=== PATIENT | male | born 1990 | race Caucasian/White ===

== ENCOUNTER 2017-05-27 17:43 | Emergency (ER) | payer SELFPAY ==
[2017-05-27 17:44] VITALS: BMI 27.8
[2017-05-27 18:17] VITALS: TEMP 102.6
[2017-05-27] MEDS ORDERED: Sodium Chloride 0.9% 1,000 ML IV STA (18:30)
--- NOTE | 2017-05-27 18:30 | ED PDOC ---
Arrival/HPI - General Chief Complaint: Flu-like Symptoms Time Seen by Provider: 05/27/17 18:13 Historian: Patient - History of Present Illness Narrative History of Present Illness (Text): 05/27/17 18:24 26yo male with no Past medical history who present with complaint of fever , body ache and mild cough x 2days. Notes that he took Motrin last night with some relieve. He denies sore throat, abdominal pain, nausea, vomiting, diarrhea , urinary symptoms, any other complaint. Past Medical History - Provider Review Nursing Documentation Reviewed: Yes - Infectious Disease Hx of Infectious Diseases: None - Tetanus Immunization Tetanus Immunization: Unknown - Past Medical History Past Medical History: No Previous - Cardiac Hx Cardiac Disorders: No - Pulmonary Hx Respiratory Disorders: No - Neurological Hx Neurological Disorder: No - HEENT Hx HEENT Disorder: No - Renal Hx Renal Disorder: No - Endocrine/Metabolic Hx Endocrine Disorders: No - Hematological/Oncological Hx Blood Disorders: No - Integumentary Hx Dermatological Disorder: No - Musculoskeletal/Rheumatological Hx Musculoskeletal Disorders: No - Gastrointestinal Hx Gastrointestinal Disorders: No - Genitourinary/Gynecological Hx Genitourinary Disorders: No - Psychiatric Hx Psychophysiologic Disorder: No Hx Substance Use: No - Surgical History Hx Orthopedic Surgery: Yes (L KNEE) - Suicidal Assessment Feels Threatened In Home Enviroment: No Family/Social History - Physician Review Nursing Documentation Reviewed: Yes Family/Social History: Unknown Family HX Smoking Status: Never Smoked Hx Alcohol Use: Yes Frequency of alcohol use: Socially Hx Substance Use: No Hx Substance Use Treatment: No Allergies/Home Meds Allergies/Adverse Reactions: Allergies No Known Allergies Allergy (Verified 05/27/17 17:48) Review of Systems - Physician Review All systems were reviewed & negative as marked: Yes - Review of Systems Constitutional: Fevers Eyes: Normal ENT: Normal Respiratory: Cough. absent: SOB, Sputum, Wheezing Cardiovascular: Normal Gastrointestinal: Normal Genitourinary Male: Normal Musculoskeletal: Myalgias Skin: Normal Neurological: Normal Endocrine: Normal Hemo/Lymphatic: Normal Psychiatric: Normal Physical Exam Vital Signs Reviewed: Yes Vital Signs Temp Pulse Resp BP Pulse Ox 05/27/17 17:50 102.6 F H 144 H 17 132/79 98 Temperature: Febrile Blood Pressure: Normal Pulse: Tachycardic Respiratory Rate: Normal Appearance: Positive for: Well-Appearing, Non-Toxic, Comfortable Pain Distress: None Mental Status: Positive for: Alert and Oriented X 3 - Systems Exam Head: Present: Atraumatic, Normocephalic Pupils: Present: PERRL Extroacular Muscles: Present: EOMI Conjunctiva: Present: Normal Mouth: Present: Moist Mucous Membranes Neck: Present: Normal Range of Motion Respiratory/Chest: Present: Clear to Auscultation, Good Air Exchange. No: Respiratory Distress, Accessory Muscle Use, Wheezes, Decreased Breath Sounds, Rales, Retracting, Rhonchi Cardiovascular: Present: Regular Rate and Rhythm, Normal S1, S2. No: Murmurs Abdomen: Present: Normal Bowel Sounds. No: Tenderness, Distention, Peritoneal Signs Back: Present: Normal Inspection Upper Extremity: Present: Normal Inspection. No: Cyanosis, Edema Lower Extremity: Present: Normal Inspection. No: Edema Neurological: Present: GCS=15, CN II-XII Intact, Speech Normal Skin: Present: Warm, Dry, Normal Color. No: Rashes Psychiatric: Present: Alert, Oriented x 3, Normal Insight, Normal Concentration Medical Decision Making ED Course and Treatment: 05/27/17 19:00 PT in ED for stated history. He was febrile and tachy on arrival. On re evaluation s/p hydration and ibuprofen his VS improved. Rapid flu was positive and he was treated and DC home with Tamiflu. Advised to drink plenty of fluid. Take analgesic and rest. - Lab Interpretations Lab Results: 05/27/17 18:30 05/27/17 18:30 Lab Results 05/27/17 18:30: Sodium 138, Potassium 4.4, Chloride 102, Carbon Dioxide 24, Anion Gap 17, BUN 10, Creatinine 1.2, Est GFR ( Amer) > 60, Est GFR (Non- Af Amer) > 60, Random Glucose 93, Calcium 9.9, Total Bilirubin 0.8, AST 47, ALT 76 H, Alkaline Phosphatase 86, Total Protein 8.2, Albumin 4.9 H, Globulin 3.3, Albumin/Globulin Ratio 1.5 05/27/17 18:30: WBC 7.1, RBC 5.37, Hgb 15.5, Hct 44.8, MCV 83.4, MCH 28.9, MCHC 34.6, RDW 12.4, Plt Count 214, MPV 9.4, Gran % 73.2 H, Lymph % (Auto) 15.1 L, [place] % (Auto) 11.0 H, Eos % (Auto) 0.4 L, Baso % (Auto) 0.3, Gran # 5.18, Lymph # 1.1 L, [place] # 0.8 H, Eos # 0.0, Baso # 0.02 05/27/17 18:25: Influenza Typ A,B (EIA) Pos for influenza a H - RAD Interpretation Radiology Orders: 05/27/17 18:18 CHEST TWO VIEWS (PA/LAT) [RAD] Stat - Medication Orders Current Medication Orders: Discontinued Medications Sodium Chloride (Sodium Chloride 0.9%) 1,000 mls @ 999 mls/hr IV .Q1H1M STA Stop: 05/27/17 19:30 Last Admin: 05/27/17 18:43 Dose: 999 mls/hr eMAR Start Stop Document 05/27/17 18:43 RD (Rec: 05/27/17 18:43 RD [id number]) Intravenous Solution Start Date 05/27/17 Start Time 18:43 End Date 05/27/17 End time 19:43 Total Infusion Time 60 Ibuprofen (Motrin Tab) 600 mg PO STAT STA Stop: 05/27/17 18:20 Last Admin: 05/27/17 18:31 Dose: 600 mg MAR Pain/Vitals Document 05/27/17 18:31 RD (Rec: 05/27/17 18:31 RD [id number]) Pain Reassessment Is This A Pain ReAssessment? No Sleep Is patient sleeping during reassessment? No Presence of Pain Presence of Pain Yes Oseltamivir Phosphate (Tamiflu Cap) 75 mg PO ONCE STA PRN Reason: Protocol Stop: 05/27/17 19:00 Last Admin: 05/27/17 19:30 Dose: 75 mg Disposition/Present on Arrival - Present on Arrival Any Indicators Present on Arrival: No History of DVT/PE: No History of Uncontrolled Diabetes: No Urinary Catheter: No History of Decub. Ulcer: No History Surgical Site Infection Following: None - Disposition Have Diagnosis and Disposition been Completed?: Yes Diagnosis: Influenza A Disposition: HOME/ ROUTINE Disposition Time: 19:05 Patient Plan: Discharge Condition: STABLE Discharge Instructions (ExitCare): Influenza (ED) Additional Instructions: Drink plenty of fluid and rest follow up with your doctor Return to Emergency department for any new or worsening symptoms Prescriptions: Ibuprofen [Motrin Tab] 600 mg PO Q6 #20 tab Oseltamivir Phosphate [Tamiflu] 75 mg PO BID #10 capsule Referrals: Cynthia Cline MD [Primary Care Provider] - Follow up with primary Forms: [employer] (Albanian)
[2017-05-27 18:51] LABS: BASO # 0.02 K/mm3 (0.0-2.0); BASO % 0.3 % (0.0-3.0); EOS % 0.4 % (1.5-5.0); GRAN # 5.18 (1.4-6.5); GRAN % 73.2 % (50.0-68.0); HEMATOCRIT 44.8 % (42.0-52.0); LYMPH # 1.1 (1.2-3.4); LYMPH % 15.1 % (22.0-35.0); MEAN CELL VOLUME 83.4 fl (80.0-105.0); MEAN CORPUSCULAR HEMOGLOBIN 28.9 pg (25.0-35.0); MEAN CORPUSCULAR HGB CONC 34.6 g/dl (31.0-37.0); MEAN PLATELET VOLUME 9.4 fl (7.0-11.0); MONO # 0.8 (0.1-0.6); RED CELL DISTRIBUTION WIDTH 12.4 % (11.5-14.5); WHITE BLOOD COUNT 7.1 10^3/ul (4.5-11.0)
[2017-05-27 18:58] LABS: ALKALINE PHOSPHATASE 86 U/L (38-126); ALT/SGPT 76 U/L (7-56); AST/SGOT 47 U/L (17-59); BILIRUBIN,TOTAL 0.8 mg/dL (0.2-1.3); BLOOD UREA NITROGEN 10 mg/dL (7-21); CALCIUM 9.9 mg/dL (8.4-10.5); CARBON DIOXIDE 24 mmol/L (21-33); CHLORIDE 102 mmol/L (98-107); GFR AFRICAN-AMERICAN > 60; GLUCOSE,RANDOM 93 mg/dL (70-110); POTASSIUM 4.4 mmol/L (3.6-5.0); SODIUM 138 mmol/L (132-148); TOTAL PROTEIN 8.2 g/dL (5.8-8.3)
[2017-05-27 19:21] LABS: ALB/GLOB RATIO 1.5 (1.1-1.8)
[2017-05-27 20:50] VITALS: BP 125/78; PULSE 105; RESP 18; O2SAT 97
--- NOTE | 2017-05-28 08:07 | RAD ---
HISTORY: cough COMPARISON: Comparison chest 10/03/2015. TECHNIQUE: Chest PA and lateral FINDINGS: LUNGS: No active pulmonary disease. PLEURA: No significant pleural effusion identified. No pneumothorax apparent. CARDIOVASCULAR: Normal. OSSEOUS STRUCTURES: Minor multilevel degenerative spondylosis of the thoracic spine. VISUALIZED UPPER ABDOMEN: Normal. OTHER FINDINGS: None. IMPRESSION: No active disease.
== END 2017-05-27 19:31 | disposition home or self-care (01) ==
LOC: ED 17:43
DX: J09.X2 Influenza due to identified novel influenza A virus with other respiratory manifestations (principal)
CPT/HCPCS: 71020; 80053; 85025; 87804; 96360; 99283; J7040